=== PATIENT | female | born 1935 | race Caucasian/White ===

== ENCOUNTER 2017-04-18 13:55 | Inpatient (IN) | payer OTHER, MEDICARE ==
[~2017-04-18 13:55] MED LIST: MAALOX 30 ML SUSP *UDC PO; MOM 30ML SUSPENSION UDC PO
[2017-04-18] MEDS: PANTOPRAZOLE 40MG TAB (PROTONIX) PO (16:02)
[2017-04-18] MEDS: METAMUCIL (PSYLLIUM) PACKET PO (16:02)
[2017-04-18] MEDS: NICOTINE 14 MG/24 HR TRANSDERMAL TD (16:03)
[2017-04-18 18:01] LABS: APPEARANCE, URINE HAZY (CLEAR); BACTERIA, URINE AUTO 1+ (NEGATIVE); BILIRUBIN, URINE AUTO NEGATIVE (NEGATIVE); BLOOD, URINE BLOOD NEGATIVE (NEGATIVE); COLOR, URINE YELLOW (YELLOW); GLUCOSE, URINE (UA) AUTO NEGATIVE (NEGATIVE); KETONE, URINE AUTO NEGATIVE (NEGATIVE); LEUKOCYTE ESTERASE, URINE AUTO 3+ (NEGATIVE); NITRITE, URINE AUTO NEGATIVE (NEGATIVE); PROTEIN, URINE AUTO NEGATIVE (NEGATIVE); RBC, URINE AUTO 4 /HPF (0-3); SPECIFIC GRAVITY URINE AUTO 1.024 (1.002-1.035); SQUAMOUS EPITHELIAL CELL UR AU 1 /HPF (0-6); WBC, URINE AUTO 5 /HPF (0-3)
[2017-04-18] MEDS ORDERED: ENOXAPARIN 30 MG/0.3 ML SYR (J1650) SC (21:00)
[2017-04-18] MEDS: ACETAMINOPHEN TAB 650MG DOSE (2X325MG) PO (21:19)
[2017-04-18] MEDS: METOPROLOL TART 50 MG TAB PO (21:19)
[2017-04-19 07:47] LABS: BASO % 0.4 % (0.0-1.0); EOS # 0.4 10^3/uL (0.0-0.50); HEMATOCRIT 30.5 % (36.0-47.0); HEMOGLOBIN 9.9 g/dl (12.0-16.0); IMMATURE GRANULOCYTE # 0.2 10^3/uL (0-0); IMMATURE GRANULOCYTE % 1.9 % (0-0); LYMPH # 1.4 10^3/uL (1.5-4.5); LYMPH % 17.8 % (24.0-44.0); MEAN CORPUSCULAR HGB CONC 32.5 g/dl (32.0-36.5); MEAN CORPUSCULAR VOLUME 92.4 fl (80.0-96.0); MONO # 0.8 10^3/uL (0.0-0.8); NEUTROPHILS # 5.3 10^3/uL (1.8-7.7); NEUTROPHILS % 64.9 % (36.0-66.0); PLATELET COUNT, AUTOMATED 318 10^3/uL (150-450); RED CELL DISTRIBUTION WIDTH 13.6 % (11.5-14.5); WHITE BLOOD COUNT 8.1 10^3/uL (4.0-10.0)
[2017-04-19 07:54] LABS: ALBUMIN 2.5 GM/DL (3.2-5.2); ALBUMIN/GLOBULIN RATIO 0.74 (1.00-1.93); ALKALINE PHOSPHATASE 82 U/L (45-117); ALT/SGPT 18 U/L (12-78); ANION GAP 8 MEQ/L (8-16); AST/SGOT 19 U/L (7-37); BILIRUBIN,TOTAL 0.8 MG/DL (0.2-1.0); BLOOD UREA NITROGEN 16 MG/DL (7-18); CALCIUM LEVEL 8.4 MG/DL (8.8-10.2); CARBON DIOXIDE LEVEL 26 MEQ/L (21-32); CHLORIDE LEVEL 106 MEQ/L (98-107); CREATININE FOR GFR 0.77 MG/DL (0.55-1.02); GLOMERULAR FILTRATION RATE > 60.0 (>39); GLUCOSE, FASTING 96 MG/DL (83-110); SODIUM LEVEL 140 MEQ/L (136-145); TOTAL PROTEIN 5.9 GM/DL (6.4-8.2)
[2017-04-19] MEDS: METAMUCIL (PSYLLIUM) PACKET PO (08:35)
[2017-04-19] MEDS: METOPROLOL TART 50 MG TAB PO ×2 (08:36→20:49)
[2017-04-19] MEDS: PANTOPRAZOLE 40MG TAB (PROTONIX) PO (08:36)
[2017-04-19] MEDS: NICOTINE 14 MG/24 HR TRANSDERMAL TD (08:36)
[2017-04-19] MEDS: PRAVASTATIN 20 MG TAB PO (08:36)
[2017-04-19] MEDS: ENOXAPARIN 40 MG/0.4 ML SYRINGE (J1650) SC (08:47)
[2017-04-19] MEDS ORDERED: ENOXAPARIN 30 MG/0.3 ML SYR (J1650) SC (09:00)
[2017-04-19 11:41] LABS: FERRITIN 316 NG/ML (8-252); IRON (FE) 38 UG/DL (50-170); PERCENT SATURATION 12.3 % (13.2-45.0); TOTAL IRON BINDING CAPACITY 310 UG/DL (250-450)
[2017-04-19] MEDS: AUGMENTIN 500 MG TAB PO ×2 (12:09→20:49)
[2017-04-19] MEDS: ACETAMINOPHEN TAB 650MG DOSE (2X325MG) PO (20:49)
[2017-04-20] MEDS: METOPROLOL TART 25 MG TABLET PO (06:47)
[2017-04-20] MEDS: PANTOPRAZOLE 40MG TAB (PROTONIX) PO (08:40)
[2017-04-20] MEDS: ENOXAPARIN 40 MG/0.4 ML SYRINGE (J1650) SC (08:40)
[2017-04-20] MEDS: METAMUCIL (PSYLLIUM) PACKET PO (08:40)
[2017-04-20] MEDS: AUGMENTIN 500 MG TAB PO ×2 (08:40→21:36)
[2017-04-20] MEDS: ACETAMINOPHEN TAB 650MG DOSE (2X325MG) PO ×3 (08:41→21:36)
[2017-04-20] MEDS: PRAVASTATIN 20 MG TAB PO (08:41)
[2017-04-20] MEDS: METOPROLOL TART 50 MG TAB PO ×3 (08:44→21:37)
[2017-04-20] MEDS: NICOTINE 14 MG/24 HR TRANSDERMAL TD (09:00)
[2017-04-21] MEDS: METOPROLOL TART 50 MG TAB PO ×3 (05:53→21:02)
[2017-04-21] MEDS: BISACODYL 5 MG TAB PO (05:53)
[2017-04-21] MEDS: traMADol 50 MG TAB PO ×2 (05:54→13:02)
[2017-04-21 07:04] LABS: HEMATOCRIT 34.4 % (36.0-47.0); MEAN CORPUSCULAR HEMOGLOBIN 29.7 pg (27.0-33.0); PLATELET COUNT, AUTOMATED 351 10^3/uL (150-450); RED CELL DISTRIBUTION WIDTH 13.8 % (11.5-14.5); WHITE BLOOD COUNT 8.6 10^3/uL (4.0-10.0)
[2017-04-21] MEDS: ACETAMINOPHEN TAB 650MG DOSE (2X325MG) PO ×3 (09:33→21:01)
[2017-04-21] MEDS: AUGMENTIN 500 MG TAB PO ×2 (09:33→21:01)
[2017-04-21] MEDS: PANTOPRAZOLE 40MG TAB (PROTONIX) PO (09:33)
[2017-04-21] MEDS: PRAVASTATIN 20 MG TAB PO (09:33)
[2017-04-21] MEDS: ENOXAPARIN 40 MG/0.4 ML SYRINGE (J1650) SC (09:34)
[2017-04-21] MEDS: METAMUCIL (PSYLLIUM) PACKET PO (09:34)
[2017-04-21] MEDS: NICOTINE 14 MG/24 HR TRANSDERMAL TD (09:35)
[2017-04-21] MEDS: LACTOBACILLUS ACIDOPHILUS CAP (BACID) PO (17:53)
[2017-04-21 18:12] LABS: FOLATE 6.3 NG/ML; VITAMIN B12 LEVEL 345 PG/ML
[2017-04-22] MEDS: METOPROLOL TART 50 MG TAB PO ×3 (06:10→21:16)
[2017-04-22] MEDS: traMADol 50 MG TAB PO ×2 (06:10→12:10)
[2017-04-22] MEDS: PANTOPRAZOLE 40MG TAB (PROTONIX) PO (08:51)
[2017-04-22] MEDS: AUGMENTIN 500 MG TAB PO ×2 (08:52→21:17)
[2017-04-22] MEDS: PRAVASTATIN 20 MG TAB PO (08:52)
[2017-04-22] MEDS: METAMUCIL (PSYLLIUM) PACKET PO (08:52)
[2017-04-22] MEDS: LACTOBACILLUS ACIDOPHILUS CAP (BACID) PO ×2 (08:52→18:10)
[2017-04-22] MEDS: ENOXAPARIN 40 MG/0.4 ML SYRINGE (J1650) SC (08:53)
[2017-04-22] MEDS: ACETAMINOPHEN TAB 650MG DOSE (2X325MG) PO ×3 (08:53→21:17)
[2017-04-23] MEDS: METOPROLOL TART 50 MG TAB PO ×3 (06:46→21:09)
[2017-04-23] MEDS: traMADol 50 MG TAB PO ×2 (06:47→12:51)
[2017-04-23] MEDS: METAMUCIL (PSYLLIUM) PACKET PO (09:00)
[2017-04-23] MEDS: PRAVASTATIN 20 MG TAB PO (09:08)
[2017-04-23] MEDS: LACTOBACILLUS ACIDOPHILUS CAP (BACID) PO ×2 (09:08→17:05)
[2017-04-23] MEDS: ACETAMINOPHEN TAB 650MG DOSE (2X325MG) PO ×3 (09:09→21:09)
[2017-04-23] MEDS: PANTOPRAZOLE 40MG TAB (PROTONIX) PO (09:09)
[2017-04-23] MEDS: AUGMENTIN 500 MG TAB PO ×2 (09:09→21:09)
[2017-04-23] MEDS: ENOXAPARIN 40 MG/0.4 ML SYRINGE (J1650) SC (09:09)
[2017-04-24] MEDS: METOPROLOL TART 50 MG TAB PO ×3 (05:37→22:10)
[2017-04-24] MEDS: traMADol 50 MG TAB PO ×2 (07:00→12:09)
[2017-04-24 07:44] LABS: HEMATOCRIT 34.4 % (36.0-47.0); HEMOGLOBIN 10.9 g/dl (12.0-16.0); MEAN CORPUSCULAR HGB CONC 31.7 g/dl (32.0-36.5); MEAN CORPUSCULAR VOLUME 94.8 fl (80.0-96.0); PLATELET COUNT, AUTOMATED 309 10^3/uL (150-450); RED BLOOD COUNT 3.63 10^6/uL (4.00-5.40); RED CELL DISTRIBUTION WIDTH 14.2 % (11.5-14.5); WHITE BLOOD COUNT 6.4 10^3/uL (4.0-10.0)
[2017-04-24] MEDS: LACTOBACILLUS ACIDOPHILUS CAP (BACID) PO ×2 (08:03→18:00)
[2017-04-24] MEDS: ACETAMINOPHEN TAB 650MG DOSE (2X325MG) PO ×3 (08:03→20:59)
[2017-04-24] MEDS: AUGMENTIN 500 MG TAB PO ×2 (08:03→20:59)
[2017-04-24] MEDS: METAMUCIL (PSYLLIUM) PACKET PO (08:03)
[2017-04-24] MEDS: PANTOPRAZOLE 40MG TAB (PROTONIX) PO (08:04)
[2017-04-24] MEDS: ENOXAPARIN 40 MG/0.4 ML SYRINGE (J1650) SC (08:04)
[2017-04-24] MEDS: PRAVASTATIN 20 MG TAB PO (08:04)
[2017-04-24] MEDS ORDERED: NICOTINE 7 MG/24 HR TRANSDERMAL TD (09:00)
[2017-04-25] MEDS: METOPROLOL TART 50 MG TAB PO ×3 (06:13→21:41)
[2017-04-25] MEDS: traMADol 50 MG TAB PO (07:00)
[2017-04-25] MEDS: METAMUCIL (PSYLLIUM) PACKET PO (08:32)
[2017-04-25] MEDS: LACTOBACILLUS ACIDOPHILUS CAP (BACID) PO ×2 (08:33→18:34)
[2017-04-25] MEDS: PRAVASTATIN 20 MG TAB PO (08:33)
[2017-04-25] MEDS: PANTOPRAZOLE 40MG TAB (PROTONIX) PO (08:33)
[2017-04-25] MEDS: ACETAMINOPHEN TAB 650MG DOSE (2X325MG) PO ×3 (08:33→21:41)
[2017-04-25] MEDS: ENOXAPARIN 40 MG/0.4 ML SYRINGE (J1650) SC (08:33)
[2017-04-25] MEDS: AUGMENTIN 500 MG TAB PO ×2 (08:33→21:41)
[2017-04-26] MEDS: METOPROLOL TART 50 MG TAB PO ×3 (06:28→21:41)
[2017-04-26 06:51] LABS: HEMATOCRIT 28.3 % (36.0-47.0); HEMOGLOBIN 9.1 g/dl (12.0-16.0); MEAN CORPUSCULAR HEMOGLOBIN 30.3 pg (27.0-33.0); MEAN CORPUSCULAR HGB CONC 32.2 g/dl (32.0-36.5); MEAN CORPUSCULAR VOLUME 94.3 fl (80.0-96.0); PLATELET COUNT, AUTOMATED 286 10^3/uL (150-450); RED CELL DISTRIBUTION WIDTH 14.1 % (11.5-14.5); WHITE BLOOD COUNT 5.5 10^3/uL (4.0-10.0)
[2017-04-26 07:20] LABS: ALBUMIN 2.7 GM/DL (3.2-5.2); ALBUMIN/GLOBULIN RATIO 0.82 (1.00-1.93); ALKALINE PHOSPHATASE 204 U/L (45-117); ALT/SGPT 16 U/L (12-78); ANION GAP 6 MEQ/L (8-16); AST/SGOT 16 U/L (7-37); BILIRUBIN,TOTAL 0.4 MG/DL (0.2-1.0); BLOOD UREA NITROGEN 17 MG/DL (7-18); CALCIUM LEVEL 8.3 MG/DL (8.8-10.2); CARBON DIOXIDE LEVEL 28 MEQ/L (21-32); CHLORIDE LEVEL 109 MEQ/L (98-107); CREATININE FOR GFR 0.83 MG/DL (0.55-1.02); GLOMERULAR FILTRATION RATE > 60.0 (>39); GLUCOSE, FASTING 102 MG/DL (83-110); POTASSIUM SERUM 3.9 MEQ/L (3.5-5.1); SODIUM LEVEL 143 MEQ/L (136-145)
[2017-04-26] MEDS: ENOXAPARIN 40 MG/0.4 ML SYRINGE (J1650) SC (08:19)
[2017-04-26] MEDS: LACTOBACILLUS ACIDOPHILUS CAP (BACID) PO (08:19)
[2017-04-26] MEDS: METAMUCIL (PSYLLIUM) PACKET PO (08:19)
[2017-04-26] MEDS: PANTOPRAZOLE 40MG TAB (PROTONIX) PO (08:19)
[2017-04-26] MEDS: PRAVASTATIN 20 MG TAB PO (08:22)
[2017-04-26] MEDS: ACETAMINOPHEN TAB 650MG DOSE (2X325MG) PO ×3 (08:23→21:42)
[2017-04-27] MEDS: METOPROLOL TART 50 MG TAB PO ×3 (05:53→20:53)
[2017-04-27 07:12] LABS: HEMATOCRIT 29.4 % (36.0-47.0); HEMOGLOBIN 9.4 g/dl (12.0-16.0); MEAN CORPUSCULAR VOLUME 93.9 fl (80.0-96.0); PLATELET COUNT, AUTOMATED 287 10^3/uL (150-450); RED BLOOD COUNT 3.13 10^6/uL (4.00-5.40); RED CELL DISTRIBUTION WIDTH 14.1 % (11.5-14.5); WHITE BLOOD COUNT 5.2 10^3/uL (4.0-10.0)
[2017-04-27] MEDS: ACETAMINOPHEN TAB 650MG DOSE (2X325MG) PO ×3 (09:11→20:52)
[2017-04-27] MEDS: PRAVASTATIN 20 MG TAB PO (09:11)
[2017-04-27] MEDS: PANTOPRAZOLE 40MG TAB (PROTONIX) PO (09:11)
[2017-04-27] MEDS: METAMUCIL (PSYLLIUM) PACKET PO (09:11)
[2017-04-27] MEDS: ENOXAPARIN 40 MG/0.4 ML SYRINGE (J1650) SC (14:02)
[2017-04-28] MEDS: METOPROLOL TART 50 MG TAB PO ×3 (05:47→21:34)
[2017-04-28] MEDS: METAMUCIL (PSYLLIUM) PACKET PO (08:39)
[2017-04-28] MEDS: ENOXAPARIN 40 MG/0.4 ML SYRINGE (J1650) SC (08:39)
[2017-04-28] MEDS: ACETAMINOPHEN TAB 650MG DOSE (2X325MG) PO ×3 (08:40→21:34)
[2017-04-28] MEDS: PRAVASTATIN 20 MG TAB PO (08:40)
[2017-04-28] MEDS: PANTOPRAZOLE 40MG TAB (PROTONIX) PO (08:40)
[2017-04-29] MEDS: METOPROLOL TART 50 MG TAB PO ×3 (06:00→21:01)
[2017-04-29] MEDS: PANTOPRAZOLE 40MG TAB (PROTONIX) PO (09:59)
[2017-04-29] MEDS: PRAVASTATIN 20 MG TAB PO (09:59)
[2017-04-29] MEDS: ACETAMINOPHEN TAB 650MG DOSE (2X325MG) PO ×3 (10:00→20:58)
[2017-04-29] MEDS: METAMUCIL (PSYLLIUM) PACKET PO (10:00)
[2017-04-29] MEDS: ENOXAPARIN 40 MG/0.4 ML SYRINGE (J1650) SC (10:00)
[2017-04-30] MEDS: METOPROLOL TART 50 MG TAB PO ×3 (05:35→21:08)
[2017-04-30 06:54] LABS: HEMATOCRIT 28.7 % (36.0-47.0); HEMOGLOBIN 9.1 g/dl (12.0-16.0); MEAN CORPUSCULAR HEMOGLOBIN 29.7 pg (27.0-33.0); MEAN CORPUSCULAR HGB CONC 31.7 g/dl (32.0-36.5); MEAN CORPUSCULAR VOLUME 93.8 fl (80.0-96.0); PLATELET COUNT, AUTOMATED 255 10^3/uL (150-450); RED BLOOD COUNT 3.06 10^6/uL (4.00-5.40); RED CELL DISTRIBUTION WIDTH 14.3 % (11.5-14.5); WHITE BLOOD COUNT 4.4 10^3/uL (4.0-10.0)
[2017-04-30] MEDS: PANTOPRAZOLE 40MG TAB (PROTONIX) PO (09:52)
[2017-04-30] MEDS: PRAVASTATIN 20 MG TAB PO (09:52)
[2017-04-30] MEDS: ENOXAPARIN 40 MG/0.4 ML SYRINGE (J1650) SC (09:53)
[2017-04-30] MEDS: METAMUCIL (PSYLLIUM) PACKET PO (09:53)
[2017-04-30] MEDS: ACETAMINOPHEN TAB 650MG DOSE (2X325MG) PO ×3 (09:53→21:06)
[2017-05-01] MEDS: METOPROLOL TART 50 MG TAB PO ×2 (06:06→13:50)
[2017-05-01] MEDS: METAMUCIL (PSYLLIUM) PACKET PO (09:00)
[2017-05-01] MEDS: PRAVASTATIN 20 MG TAB PO (09:09)
[2017-05-01] MEDS: ACETAMINOPHEN TAB 650MG DOSE (2X325MG) PO (09:09)
[2017-05-01] MEDS: PANTOPRAZOLE 40MG TAB (PROTONIX) PO (09:09)
[2017-05-01] MEDS: ENOXAPARIN 40 MG/0.4 ML SYRINGE (J1650) SC (09:10)
== END 2017-05-01 13:55 | disposition home health service (06) | DRG 862 ==
LOC: M PM&R 04-29 04:22
DX: S06.5X9D Traumatic subdural hemorrhage with loss of consciousness of unspecified duration, subsequent encounter (principal); S32.302D Unspecified fracture of left ilium, subsequent encounter for fracture with routine healing; S22.43XD Multiple fractures of ribs, bilateral, subsequent encounter for fracture with routine healing; S06.0X9D Concussion with loss of consciousness of unspecified duration, subsequent encounter; S92.351D Displaced fracture of fifth metatarsal bone, right foot, subsequent encounter for fracture with routine healing; N39.0 Urinary tract infection, site not specified; F41.9 Anxiety disorder, unspecified; I25.119 Atherosclerotic heart disease of native coronary artery with unspecified angina pectoris; K21.9 Gastro-esophageal reflux disease without esophagitis; E78.5 Hyperlipidemia, unspecified; I10 Essential (primary) hypertension; I87.2 Venous insufficiency (chronic) (peripheral); D64.9 Anemia, unspecified; I48.0 Paroxysmal atrial fibrillation; B96.20 Unspecified Escherichia coli [E. coli] as the cause of diseases classified elsewhere; Z87.891 Personal history of nicotine dependence; Z79.899 Other long term (current) drug therapy; Z86.718 Personal history of other venous thrombosis and embolism; V44.5XXD Car driver injured in collision with heavy transport vehicle or bus in traffic accident, subsequent encounter; Y92.488 Other paved roadways as the place of occurrence of the external cause; Y99.8 Other external cause status; Z88.8 Allergy status to other drugs, medicaments and biological substances